=== PATIENT | female | born 1970 | race Two or more races ===

== ENCOUNTER 2024-04-15 11:30 | Emergency (ER) | payer MEDICAID, OTHER ==
[~2024-04-15] VITALS: Ht 162.6 cm; Wt 62.2 kg
--- NOTE | 2024-04-15 12:02 | ED.PDOC ---
[employer] HPI Comments 53 year old female presents to the ED with chief complaint of vaginal bleeding. Patient reports that she has had increased vaginal bleeding since 04/10 with associated clots, abdominal discomfort and weakness. Patient relays that she was diagnosed with uterine fibroids years ago, but was told they were small. Patient states she has history of anemia. Patient denies any N/V/D, dizziness, headache, vaginal discharge, dysuria, or chest pain. Chief Complaint: Vaginal Bleed Time Seen by MD: 11:59 Reviewed Notes: Nurses Notes, Medications, Allergies Allergies: Coded Allergies: Morphine (Verified Allergy, Unknown, 04/15/24) Information Source: Patient Mode of Arrival: Ambulatory Timing: Days Prehospital treatment: None Severity: Moderate Vaginal Discharge: None Vaginal Lesions: None Bleeding Quality: Bright Red Vaginal Mass: None Onset Of Mass/Bleeding: Spontaneous Associated Signs and Symptoms: Vaginal Bleeding, Abdominal Pain, Cramping Past Medical History PAST MEDICAL HISTORY: Anemia Surgical History: Appendectomy, Cholecystectomy, FASHION INTERN History: Uterine Fibroids Family History Family History: Reviewed,noncontributory to illness Social History Smoker: Non-Smoker Alcohol: Denies ETOH Use Drugs: Denies Drug Use Lives In: Home Constitutional: reports: weakness; denies: chills, diaphoresis, fatigue, fever, malaise, sweats, others EENTM: denies: blurred vision, double vision, ear bleeding, ear discharge, ear drainage, ear pain, ear ringing, eye pain, eye redness, hearing loss, mouth pain, mouth swelling, nasal discharge, nose bleeding, nose congestion, nose pain, photophobia, tearing, throat pain, throat swelling, voice changes, others Respiratory: denies: cough, hemoptysis, orthopnea, SOB at rest, shortness of b reath, SOB with excertion, stridor, wheezing, others Cardiovascular: denies: chest pain, dizzy spells, diaphoresis, Dyspnea on exertion, edema, irregular heart beat, left arm pain, lightheadedness, palpitations, PND, syncope, others Gastrointestinal: reports: abdominal pain; denies: abdomen distended, blood streaked bowels, constipated, diarrhea, dysphagia, difficulty swallowing, hematemesis, melena, nausea, poor appetite, poor fluid intake, rectal bleeding, rectal pain, vomiting, others Genitourinary: reports: abnormal vagina bleeding; denies: burning, dyspareunia, dysuria, flank pain, frequency, hematuria, incontinence, pain, , vagina discharge, urgency, others Neurological: denies: dizziness, fainting, headache, left sided numbness, left sided weakness, numbness, paresthesia, pre-existing deficit, right sided numbness, right sided weakness, seizure, speech problems, tingling, tremors, weakness, others Musculoskeletal: denies: back pain, gout, joint pain, joint swelling, muscle pain, muscle stiffness, neck pain, others Integumetry: denies: bruises, change in color, change in hair/nails, dryness, laceration, lesions, lumps, rash, wounds, others Allergic/Immunocompromised: denies: Difficulty Healing, Frequent Infections, Hives, Itching, others Hematologic/Lymphatic: denies: anemia, blood clots, easy bleeding, easy bruising, swollen glands, others Endocrine: denies: excessive hunger, excessive sweating, excessive thirst, excessive urination, flushing, intolerance to cold, intolerance to heat, unexplained weight gain, unexplained weight loss, others Psychiatric: denies: anxiety, bipolar disorder, depression, hopeless, panic disorder, schizophrenia, sleepless, suicidal, others All Other Systems: Reviewed and Negative Physical Exam General Appearance: Moderate Distress, Normal HEENT: Normal ENT Inspection, PERRL/EOMI Neck: Full Range of Motion, Non-Tender, Normal, Normal Inspection Respiratory: Chest Non-Tender, Lungs Clear, No Accessory Muscle Use, No Respiratory Distress, Normal Breath Sounds Cardiovascular: No Edema, No JVD, No Murmur, No Gallop, Normal Peripheral Pulses, Regular Rate/Rhythm Breast Exam: Deferred Gastrointestinal: No Organomegaly, Non Tender, No Pulsatile Mass, Normal Bowel Sounds, Soft Genitalia: Deferred Pelvic: Deferred Rectal: Deferred Extremities: No calf tenderness, Normal capillary refill, Normal inspection, Normal range of motion, Non-tender, No pedal edema Musculoskeletal : Apperance: Normal Neurologic: Alert, radio television technical director II-XII nml as Tested, No Motor Deficits, Normal Affect, Normal Mood, No Sensory Deficits Cerebellar Function: Normal Reflexes: Normal Skin: Dry, Normal Color, Warm Peripheral Pulses: 3+ Radial (R), 3+ Radial (L) Lymphatic: No Adenopathy Was a procedure done? Was a procedure done?: No Differential Diagnosis (FASHION INTERN) Vaginal Bleeding: Menorrhagia, Menometrorrhagia X-Ray, Labs, Meds, VS Vital Signs Date Time Temp Pulse Resp B/P (MAP) Pulse Ox O2 Delivery O2 Flow Rate FiO2 04/15/24 12:20 98.4 80 19 124/50 (74) 98 98.4 04/15/24 12:19 Room Air* 0 21 04/15/24 11:40 98.4 86 18 124/54 (77) 99 Lab Test 04/15/24 14:05 Range/Units White Blood Count 5.5 4.4-10.8 10^3/uL Red Blood Count 4.12 4.0-5.20 10^6/uL Hemoglobin 11.9 L 12.2-16.2 g/dL Hematocrit 35.7 L 36.0-46.0 % Mean Corpuscular Volume 86.7 80.0-100.0 fL Mean Corpuscular Hemoglobin 28.8 28.0-32.0 pg Mean Corpuscular Hemoglobin Concent 33.3 32.0-36.0 g/dL Red Cell Distribution Width 13.2 11.8-14.3 % Platelet Count 204 140-450 10^3/uL Mean Platelet Volume 8.2 6.9-10.8 fL Neutrophils (%) (Auto) 40.0 37.0-80.0 % Lymphocytes (%) (Auto) 49.0 10.0-50.0 % Monocytes (%) (Auto) 7.9 0.0-12.0 % Eosinophils (%) (Auto) 2.7 0.0-7.0 % Basophils (%) (Auto) 0.4 0.0-2.0 % Neutrophils # (Auto) 2.2 1.6-8.6 10 ^3/uL Lymphocytes # (Auto) 2.7 0.4-5.4 10 ^3/uL Monocytes # (Auto) 0.4 0-1.3 10 ^3/uL Eosinophils # (Auto) 0.1 0-0.8 10 ^3/uL Basophils # (Auto) 0 0-0.2 10 ^3/uL Nucleated Red Blood Cells 0.1 % Current Medications Medications (Trade) Dose Ordered Sig/Shabbir Route Start Time Stop Time Status Last Admin Sodium Chloride 1,000 ml @ 1,000 mls/hr Q1H ONCE IVB 04/15/24 12:00 04/15/24 12:59 DC 04/15/24 12:24 Patient alert. Complaining of vaginal bleeding. Vitals stable. Answering questions. Possible fibroid. Establish intravenous access. Was given fluids. No leg swelling. No shortness a breath. No sign of any distress. No sign of anemia. No sepsis. Ultrasound reviewed does not show any acute process should reviewed with OBGYN. Explained to the patient. Was told to follow up with her primary care physician. Was told to come back if there is any problem. Time of 1ST Reevaluation: 12:59 Reevaluation 1ST: Unchanged Patient Education/Counseling: Diagnosis, Treatment Family Education/Counseling: Diagnosis, Treatment Departure 1 Departure Time of Disposition: 12:46 Impression: Primary Impression: Dehydration Disposition: 01 HOME / SELF CARE / HOMELESS Condition: Good Discharged With: Self Critical Care Note Critical Care Time?: No Stability Stability form required: No Heart Score Heart Score: Heart Score Response (Comments) Value History N/A 0 EKG N/A 0 Age N/A 0 Risk Factors N/A 0 Troponin N/A 0 Total 0 I personally scribed for BRICE MORAN MD ([email or web address]) on 04/15/24 at 12:02. Electronically submitted by Doe Good ([email or web address]). BRICE MORAN MD Apr 15, 2024 12:02
[2024-04-15] MEDS: SODIUM CHLORIDE 0.9% 1,000 ML IVB ONE (12:24)
--- NOTE | 2024-04-15 13:49 | DVH ---
EXAM: US PELVIC CLINICAL HISTORY: fibroid TECHNIQUE: Transabdominal and transvaginal ultrasound of the pelvis with color Doppler flow as clinic ally indicated. COMPARISON: None Findings: Same-day quantitative beta-hCG is not available. Retroverted uterus measures 9.2 x 5.1 x 5.0 cm in size with relatively homogeneous echotexture and no rmal contours. Endometrial thickness measures 0.8 cm with smooth contour. Cervix appears grossly unre markable. Right ovary measures 2.8 x 1.3 x 1.5 cm. Left ovary measures 1.5 x 0.6 x 1.0 cm. Normal ovarian colo r Doppler flow to the bilateral ovaries. No free fluid in the cul-de-sac. Impression: 1. Retroverted uterus grossly unremarkable with endometrial thickness of 0.8 cm. If patient is postme nopausal, endometrial tissue sampling is recommeded. 2. No definite fibroids appreciated. 3. Bilateral ovaries within normal limits with normal color flow.
[2024-04-15 14:26] LABS: Basophils # (auto) 0 10 ^3/uL (0-0.2); Basophils % (auto) 0.4 % (0.0-2.0); Eosinophils # (auto) 0.1 10 ^3/uL (0-0.8); Eosinophils % (auto) 2.7 % (0.0-7.0); Hematocrit 35.7 % (36.0-46.0); Hemoglobin 11.9 g/dL (12.2-16.2); Lymphocytes # (auto) 2.7 10 ^3/uL (0.4-5.4); Mean Corpuscular Hemoglobin 28.8 pg (28.0-32.0); Mean Corpuscular Hgb Conc. 33.3 g/dL (32.0-36.0); Mean Corpuscular Volume 86.7 fL (80.0-100.0); Monocytes # (auto) 0.4 10 ^3/uL (0-1.3); Monocytes % (auto) 7.9 % (0.0-12.0); Neutrophils # (auto) 2.2 10 ^3/uL (1.6-8.6); Nucleated Red Blood Cells % 0.1 %; Platelet Count (auto) 204 10^3/uL (140-450); Red Blood Cells 4.12 10^6/uL (4.0-5.20); Red Cell Distribution Width 13.2 % (11.8-14.3); White Blood Cell 5.5 10^3/uL (4.4-10.8)
[2024-04-15 16:04] VITALS: BP 127/104; PULSE 98; RESP 18; TEMP 98.5; O2SAT 98
== END 2024-04-15 16:05 | disposition home or self-care (01) ==
LOC: ER 11:36
DX: E86.0 Dehydration (principal); N93.9 Abnormal uterine and vaginal bleeding, unspecified; Z90.49 Acquired absence of other specified parts of digestive tract; Z86.018 Personal history of other benign neoplasm; Z88.5 Allergy status to narcotic agent
CPT/HCPCS: 36415; 76830; 76856; 96360; 99284; J7030